=== PATIENT | female | born 1960 | race Hispanic/Latino ===

== ENCOUNTER 2020-07-16 00:52 | Emergency (ER) | payer OTHER, SELFPAY ==
[2020-07-16] MEDS ORDERED: Ketorolac Tromethamine 30 MG/ML VIAL ONE (03:39)
[2020-07-16] MEDS ORDERED: Metoclopramide HCl 10 MG/2 ML VIAL ONE (03:39)
[2020-07-16] MEDS ORDERED: diphenhydrAMINE 50 MG/ML VIAL ONE (03:39)
[2020-07-16 04:06] LABS: ALT (SGPT) 16 U/L (8-55); AST (SGOT) 19 U/L (5-34); Albumin 4.2 g/dL (3.5-5.0); Alkaline Phosphatase 87 U/L (40-110); Anion Gap 12 mmol/L (10-20); BUN (Urea Nitrogen) 10 mg/dL (9.8-20.1); Calc. Creatinine Clearance 0 mL/min (70-130); Carbon Dioxide 28 mmol/L (22-29); Globulin 3.3 g/dL (2.4-3.5); Glucose 174 mg/dL (70-105); Potassium 3.7 mmol/L (3.5-5.1); Protein, Total 7.5 g/dL (6.0-8.3); Sodium 134 mmol/L (136-145)
[2020-07-16 04:24] LABS: Calcium 8.9 mg/dL (7.8-10.44); Chloride 98 mmol/L (98-107)
[2020-07-16 04:39] LABS: #Basophils 0.1 thou/uL (0.0-0.2); #Eosinphils 0.2 thou/uL (0.0-0.7); #Lymphocytes 2.8 thou/uL (1.20-3.40); #Monocytes 0.5 thou/uL (0.11-0.59); #Neutrophils 4.4 thou/uL (1.40-6.50); %Basophils 1.1 % (0.0-1.0); %Eosinophils 2.8 % (0.0-10.0); %Lymphocytes 35.5 % (21.0-51.0); %Monocytes 5.6 % (0.0-10.0); Hemoglobin 12.1 g/dL (12.0-16.0); Large Platelets SLIGHT; MDiff Complete? YES; Mean Corpuscular HGB CONC 33.8 g/dL (32.0-36.0); Mean Corpuscular Hemoglobin 30.6 pg (27.0-31.0); Mean Corpuscular Volume 90.5 fL (78.0-98.0); Mean Platelet Volume 13.4 fL (7.4-10.4); Platelet Count 106 thou/uL (130-400); Platelet Morphology Comment Appears Decreased; RBC Distribution Width 12.4 % (11.5-14.5); Red Blood Cell (RBC) Count 3.95 mill/uL (4.20-5.40)
== END 2020-07-16 06:00 | disposition home or self-care (01) ==
LOC: ERS 00:52
DX: M47.812 Spondylosis without myelopathy or radiculopathy, cervical region (principal); R51.9 Headache, unspecified; R29.701 NIHSS score 1; I10 Essential (primary) hypertension; E11.9 Type 2 diabetes mellitus without complications; E78.5 Hyperlipidemia, unspecified
CPT/HCPCS: 36415; 70450; 72125; 80053; 84484; 85025; 93005; 94760; 96365; 96375; J1200; J1885; J2765

== ENCOUNTER 2021-02-18 01:34 | Emergency (ER) | payer SELFPAY ==
[2021-02-18] MEDS ORDERED: cloNIDine 0.1 MG TAB ONE (02:11)
[2021-02-18 04:19] LABS: #Basophils 0.1 thou/uL (0.0-0.2); #Eosinphils 0.2 thou/uL (0.0-0.7); #Lymphocytes 3.2 thou/uL (1.20-3.40); #Monocytes 0.6 thou/uL (0.11-0.59); #Neutrophils 6.3 thou/uL (1.40-6.50); %Basophils 0.9 % (0.0-1.0); %Eosinophils 1.9 % (0.0-10.0); %Lymphocytes 30.7 % (21.0-51.0); %Monocytes 5.4 % (0.0-10.0); %Neutrophils 61.1 % (42.0-75.0); Hemoglobin 11.8 g/dL (12.0-16.0); Mean Corpuscular HGB CONC 33.7 g/dL (32.0-36.0); Mean Platelet Volume 13.2 fL (7.4-10.4); Platelet Count 96 thou/uL (130-400); RBC Distribution Width 12.6 % (11.5-14.5); Red Blood Cell (RBC) Count 3.82 mill/uL (4.20-5.40); White Blood Cell (WBC) Count 10.3 thou/uL (4.8-10.8)
[2021-02-18 04:29] LABS: ALT (SGPT) 53 U/L (8-55); AST (SGOT) 49 U/L (5-34); Albumin 4.1 g/dL (3.4-4.8); Alkaline Phosphatase 71 U/L (40-110); Anion Gap 14 mmol/L (10-20); BUN (Urea Nitrogen) 9 mg/dL (9.8-20.1); Bilirubin, Total 1.3 mg/dL (0.2-1.2); Calc. Creatinine Clearance 0 mL/min (70-130); Calcium 9.3 mg/dL (7.8-10.44); Carbon Dioxide 27 mmol/L (23-31); Chloride 89 mmol/L (98-107); Glucose 148 mg/dL (80-115); Potassium 4.1 mmol/L (3.5-5.1); Protein, Total 7.1 g/dL (5.8-8.1); Sodium 126 mmol/L (136-145)
== END 2021-02-18 05:05 | disposition home or self-care (01) ==
LOC: ERS 01:34
DX: I10 Essential (primary) hypertension (principal); E11.9 Type 2 diabetes mellitus without complications; E78.5 Hyperlipidemia, unspecified; Z79.899 Other long term (current) drug therapy
CPT/HCPCS: 71045; 80053; 84484; 85025; 93005

== ENCOUNTER 2021-12-02 20:42 | Inpatient (IN) | payer SELFPAY ==
[2021-12-02 21:50] LABS: ALT (SGPT) 35 U/L (8-55); AST (SGOT) 31 U/L (5-34); Albumin 4.6 g/dL (3.4-4.8); Alkaline Phosphatase 99 U/L (40-110); Anion Gap 16 mmol/L (10-20); BUN (Urea Nitrogen) 9 mg/dL (9.8-20.1); Calc. Creatinine Clearance 0 mL/min (70-130); Calcium 9.6 mg/dL (7.8-10.44); Carbon Dioxide 30 mmol/L (23-31); Chloride 95 mmol/L (98-107); Estimated GFR 98; Globulin 3.3 g/dL (2.4-3.5); Glucose 196 mg/dL (80-115); Lipase 34 U/L (8-78); Potassium 4.3 mmol/L (3.5-5.1); Protein, Total 7.9 g/dL (5.8-8.1); Sodium 137 mmol/L (136-145)
[2021-12-02 22:01] LABS: #Basophils 0.1 thou/uL (0.0-0.2); #Eosinphils 0.3 thou/uL (0.0-0.7); #Lymphocytes 2.8 thou/uL (1.20-3.40); #Monocytes 0.6 thou/uL (0.11-0.59); %Basophils 0.7 % (0.0-1.0); %Eosinophils 2.8 % (0.0-10.0); %Lymphocytes 28.6 % (21.0-51.0); %Monocytes 6.3 % (0.0-10.0); %Neutrophils 61.6 % (42.0-75.0); Hemoglobin 13.1 g/dL (12.0-16.0); Large Platelets SLIGHT; MDiff Complete? YES; Mean Corpuscular HGB CONC 34.7 g/dL (32.0-36.0); Mean Corpuscular Hemoglobin 31.5 pg (27.0-31.0); Mean Corpuscular Volume 90.9 fL (78.0-98.0); Mean Platelet Volume 12.4 fL (7.4-10.4); Platelet Count 124 thou/uL (130-400); Platelet Morphology Comment Appears Adequate; RBC Distribution Width 12.6 % (11.5-14.5); Red Blood Cell (RBC) Count 4.17 mill/uL (4.20-5.40); White Blood Cell (WBC) Count 9.8 thou/uL (4.8-10.8)
[2021-12-02] MEDS ORDERED: Nitroglycerin 0.4 MG TAB 1 EACH ONE (22:03)
[2021-12-02 22:44] LABS: Bilirubin, Total 1.1 mg/dL (0.2-1.2)
[2021-12-02] MEDS ORDERED: Labetalol HCl 100 MG/20 ML VIAL ONE (23:15)
[2021-12-02] MEDS ORDERED: Aspirin Chewable 81 MG TAB ONE (23:32)
[2021-12-03] MEDS ORDERED: Ondansetron ODT 4 MG TAB SL PRN (00:15)
[2021-12-03] MEDS ORDERED: Ondansetron PF 4 MG/2 ML Vial IVP PRN (00:15)
[2021-12-03] MEDS ORDERED: Acetaminophen 325 MG TAB PO PRN (00:15)
[2021-12-03] MEDS ORDERED: Nitroglycerin 2% Ointment 1 INCH/1 GM Packet ONE (00:37)
[2021-12-03] MEDS ORDERED: HumaLOG 300 UNITS/3 ML VIAL SC PRN ×2 (00:48)
[2021-12-03] MEDS ORDERED: Acetaminophen 650 MG Suppository PR PRN (00:48)
[2021-12-03] MEDS ORDERED: Nitroglycerin 0.4 MG TAB (25 Tab Bottle) SL PRN (00:48)
[2021-12-03] MEDS ORDERED: Dextrose 5% in Water 1,000 ML IV PRN (00:48)
[2021-12-03] MEDS ORDERED: Dextrose 50% Abboject 50 ML SYRINGE SLOW IVP PRN (00:48)
[2021-12-03] MEDS ORDERED: Clopidogrel Bisulfate 75 MG TAB ONE (01:00)
[2021-12-03 01:22] LABS: Troponin I Less than 0.010 ng/mL (< 0.028)
[2021-12-03 01:48] LABS: SARS-CoV-2 NAA Rapid Test Not Detected (NotDetected)
[2021-12-03] MEDS ORDERED: Acetaminophen 325 MG TAB ONE (04:12)
[2021-12-03] MEDS ORDERED: hydrALAZINE 20 MG/ML VIAL SLOW IVP PRN (04:17)
[2021-12-03 05:17] LABS: Anion Gap 18 mmol/L (10-20); BUN (Urea Nitrogen) 6 mg/dL (9.8-20.1); Calc. Creatinine Clearance 0 mL/min (70-130); Calcium 9.7 mg/dL (7.8-10.44); Carbon Dioxide 27 mmol/L (23-31); Chloride 97 mmol/L (98-107); Estimated GFR 101; Glucose 164 mg/dL (80-115); Potassium 3.9 mmol/L (3.5-5.1); Sodium 138 mmol/L (136-145)
[2021-12-03 05:23] LABS: Troponin I Less than 0.010 ng/mL (< 0.028)
[2021-12-03 05:48] LABS: #Basophils 0.1 thou/uL (0.0-0.2); #Eosinphils 0.2 thou/uL (0.0-0.7); #Lymphocytes 2.5 thou/uL (1.20-3.40); #Monocytes 0.5 thou/uL (0.11-0.59); #Neutrophils 5.3 thou/uL (1.40-6.50); %Basophils 0.9 % (0.0-1.0); %Eosinophils 2.4 % (0.0-10.0); %Lymphocytes 28.8 % (21.0-51.0); %Monocytes 5.9 % (0.0-10.0); Hemoglobin 12.4 g/dL (12.0-16.0); Mean Corpuscular HGB CONC 33.4 g/dL (32.0-36.0); Mean Corpuscular Hemoglobin 30.8 pg (27.0-31.0); Mean Corpuscular Volume 92.1 fL (78.0-98.0); Mean Platelet Volume 12.6 fL (7.4-10.4); Platelet Count 112 thou/uL (130-400); RBC Distribution Width 12.8 % (11.5-14.5); Red Blood Cell (RBC) Count 4.04 mill/uL (4.20-5.40); White Blood Cell (WBC) Count 8.5 thou/uL (4.8-10.8)
[2021-12-03] MEDS ORDERED: Amlodipine 10 MG TAB PO SCH (06:30)
[2021-12-03] MEDS ORDERED: Furosemide 40 MG/4 ML VIAL SLOW IVP SCH (06:30)
[2021-12-03] MEDS ORDERED: Furosemide 40 MG/4 ML VIAL ONE (06:35)
[2021-12-03] MEDS ORDERED: Amlodipine 5 MG TAB ONE (06:35)
[2021-12-03 07:17] LABS: Hemoglobin A1c 7.1 % (4.0-6.0)
[2021-12-03] MEDS: Aspirin Chewable 81 MG TAB PO SCH (08:43)
[2021-12-03] MEDS: Enoxaparin Sodium 40 MG/0.4 ML SYRINGE SC SCH (08:44)
[2021-12-03 09:26] VITALS: BMI 42.0
[2021-12-03] MEDS ORDERED: Spironolactone 25 MG TAB PO SCH (10:45)
[2021-12-03] MEDS ORDERED: Empagliflozin 25 MG TAB PO SCH (10:45)
[2021-12-03] MEDS: Hydrochlorothiazide 25 MG TAB PO SCH (10:57)
[2021-12-03] MEDS: Carvedilol 25 MG TAB PO SCH ×2 (10:57→20:28)
[2021-12-03] MEDS: metFORMIN 500 MG TAB PO SCH (16:16)
[2021-12-03] MEDS ORDERED: Alogliptin 6.25 MG TAB PO SCH (17:00)
[2021-12-03] MEDS ORDERED: Atorvastatin Calcium 40 MG TAB PO SCH (21:00)
[2021-12-04] MEDS ORDERED: Acetaminophen 325 MG TAB PO PRN (00:04)
[2021-12-04 05:22] LABS: Anion Gap 17 mmol/L (10-20); BUN (Urea Nitrogen) 10 mg/dL (9.8-20.1); Calc. Creatinine Clearance 152 mL/min (70-130); Calcium 9.9 mg/dL (7.8-10.44); Carbon Dioxide 26 mmol/L (23-31); Chloride 96 mmol/L (98-107); Estimated GFR 100; Glucose 154 mg/dL (80-115); Potassium 3.4 mmol/L (3.5-5.1); Sodium 136 mmol/L (136-145)
[2021-12-04] MEDS ORDERED: Spironolactone 25 MG TAB PO SCH (08:00)
[2021-12-04] MEDS: Aspirin Chewable 81 MG TAB PO SCH (08:07)
[2021-12-04] MEDS: Enoxaparin Sodium 40 MG/0.4 ML SYRINGE SC SCH (08:09)
[2021-12-04] MEDS ORDERED: Empagliflozin 25 MG TAB PO SCH (09:00)
[2021-12-04] MEDS ORDERED: Amlodipine 10 MG TAB PO SCH (09:00)
[2021-12-04] MEDS ORDERED: Hydrochlorothiazide 25 MG TAB PO SCH (09:00)
[2021-12-04] MEDS ORDERED: Losartan 25 MG TAB PO SCH (09:00)
[2021-12-04] MEDS: Hydrochlorothiazide 25 MG TAB PO SCH (11:18)
[2021-12-04] MEDS: Carvedilol 25 MG TAB PO SCH (13:03)
[2021-12-04] MEDS: metFORMIN 500 MG TAB PO SCH ×2 (13:05→17:21)
[2021-12-04] MEDS ORDERED: Potassium Chloride 20 MEQ TAB PO SCH (13:30)
[2021-12-04 15:59] VITALS: BP 156/70; TEMP 98
== END 2021-12-04 17:54 | disposition home or self-care (01) | DRG 305 ==
LOC: ERS 20:42 → ERHOLD 23:47 → 2SW 12-03 07:42 → OBSVTOIN 12-04 09:51
PROVIDERS: ADMIT Student in an Organized Health Care Education/Training Program; ATTEND Family Medicine
DX: I16.1 Hypertensive emergency (principal); Z68.41 Body mass index [BMI] 40.0-44.9, adult; I50.32 Chronic diastolic (congestive) heart failure; Z20.822 Contact with and (suspected) exposure to COVID-19; E78.5 Hyperlipidemia, unspecified; D69.6 Thrombocytopenia, unspecified; I16.0 Hypertensive urgency; E11.51 Type 2 diabetes mellitus with diabetic peripheral angiopathy without gangrene; I70.209 Unspecified atherosclerosis of native arteries of extremities, unspecified extremity; I11.0 Hypertensive heart disease with heart failure; E66.01 Morbid (severe) obesity due to excess calories; F41.9 Anxiety disorder, unspecified; F32.A Depression, unspecified; Z60.2 Problems related to living alone; Z79.899 Other long term (current) drug therapy
CPT/HCPCS: 36415; 36416; 70450; 71045; 78452; 80048; 80053; 83036; 83690; 83880; 84484; 85025; 93005; 93017; 94760; 96375; A9500; G0378; J0153; J0360; J1940; U0002

== ENCOUNTER 2022-08-16 04:23 | Observation (INO) | payer SELFPAY ==
[2022-08-16 04:50] LABS: #Basophils 0.1 thou/uL (0.0-0.2); #Eosinphils 0.2 thou/uL (0.0-0.7); #Monocytes 0.5 thou/uL (0.11-0.59); #Neutrophils 5.8 thou/uL (1.40-6.50); %Basophils 0.8 % (0.0-1.0); %Eosinophils 2.2 % (0.0-10.0); %Lymphocytes 27.9 % (21.0-51.0); %Monocytes 5.5 % (0.0-10.0); %Neutrophils 63.4 % (42.0-75.0); Hemoglobin 11.2 g/dL (12.0-16.0); Mean Corpuscular HGB CONC 32.2 g/dL (32.0-36.0); Mean Corpuscular Hemoglobin 29.7 pg (27.0-31.0); Mean Corpuscular Volume 92.3 fl (78.0-98.0); Mean Platelet Volume 13.4 fL (7.4-10.4); Platelet Count 124 10x3/uL (130-400); RBC Distribution Width 13.6 % (11.5-14.5); Red Blood Cell (RBC) Count 3.77 mill/uL (4.20-5.40); White Blood Cell (WBC) Count 9.1 10x3/uL (4.8-10.8)
[2022-08-16 05:06] LABS: INR-International Normal Ratio 0.9; PTT 29.4 sec (22.9-36.1); Prothrombin Time 12.7 sec (12.0-14.7)
[2022-08-16 05:19] LABS: ALT (SGPT) 21 U/L (8-55); AST (SGOT) 17 U/L (5-34); Albumin 4.4 g/dL (3.4-4.8); Alkaline Phosphatase 76 U/L (40-110); Anion Gap 13 mmol/L (10-20); BUN (Urea Nitrogen) 23 mg/dL (9.8-20.1); Bilirubin, Total 0.8 mg/dL (0.2-1.2); CK (CPK) 65 U/L (29-168); Calc. Creatinine Clearance 0 mL/min (70-130); Calcium 9.3 mg/dL (7.8-10.44); Carbon Dioxide 25 mmol/L (23-31); Chloride 99 mmol/L (98-107); Estimated GFR 69; Globulin 3.2 g/dL (2.4-3.5); Glucose 154 mg/dL (80-115); Potassium 4.6 mmol/L (3.5-5.1); Protein, Total 7.6 g/dL (5.8-8.1); Sodium 132 mmol/L (136-145)
[2022-08-16 05:20] LABS: Acetaminophen Less than 10.0 mcg/mL (10.0-30.0); Alcohol Less than 10 mg/dL (Less than 10); Lipase 46 U/L (8-78); Salicylate Less than 8.0 mg/dL (15.0-30.0)
[2022-08-16 06:35] LABS: Bilirubin Negative (Negative); Blood, Urine Negative (Negative); Clarity Clear (Clear); Glucose, Urine (Dipstick) 500 mg/dL (Negative); Ketone, Urine Negative (Negative); Leukocyte Negative Leu/uL (Negative); Nitrite Negative (Negative); Protein, Urine (Dipstick) Negative (Neg-Trace); Specific Gravity, Urine 1.004 (1.002-1.036); Urobilinogen Normal mg/dL (Less than 2); pH, Urine 5.5 (5.0-9.0)
[2022-08-16 06:44] LABS: Amphetamine Not Detected (NotDetected); Barbiturates Screen Not Detected (NotDetected); Benzodiazepine Screen Not Detected (NotDetected); Cocaine Metabolite Screen Not Detected (NotDetected); Methadone Not Detected (NotDetected); Methamphetamine Not Detected (NotDetected); Opiate Screen Not Detected (NotDetected); Oxycodone Screen Not Detected (NotDetected); Phencyclidine (PCP) Not Detected (NotDetected); THC/Cannabinoid Screen Not Detected (NotDetected); Tricyclic Screen Not Detected (NotDetected)
[2022-08-16] MEDS ORDERED: Aspirin Chewable 81 MG TAB ONE (07:25)
[2022-08-16] MEDS ORDERED: Acetaminophen 325 MG TAB PO PRN (07:31)
[2022-08-16] MEDS ORDERED: Ondansetron PF 4 MG/2 ML Vial IVP PRN (07:31)
[2022-08-16] MEDS ORDERED: Ondansetron ODT 4 MG TAB PO PRN (07:31)
[2022-08-16 08:58] LABS: Magnesium 2.2 mg/dL (1.6-2.6)
[2022-08-16 09:17] LABS: Hemoglobin A1c 6.8 % (4.0-6.0)
[2022-08-16 15:41] VITALS: BMI 40.9
[2022-08-16] MEDS ORDERED: Atorvastatin Calcium 40 MG TAB PO SCH (21:00)
[2022-08-17 04:06] VITALS: TEMP 97.5
[2022-08-17 05:49] LABS: #Basophils 0.1 thou/uL (0.0-0.2); #Eosinphils 0.2 thou/uL (0.0-0.7); #Monocytes 0.4 thou/uL (0.11-0.59); #Neutrophils 4.8 thou/uL (1.40-6.50); %Basophils 0.8 % (0.0-1.0); %Eosinophils 2.4 % (0.0-10.0); %Lymphocytes 30.4 % (21.0-51.0); %Monocytes 5.5 % (0.0-10.0); %Neutrophils 60.6 % (42.0-75.0); Hemoglobin 12.6 g/dL (12.0-16.0); Mean Corpuscular HGB CONC 31.7 g/dL (32.0-36.0); Mean Corpuscular Hemoglobin 29.2 pg (27.0-31.0); Mean Corpuscular Volume 91.9 fl (78.0-98.0); Mean Platelet Volume 13.7 fL (7.4-10.4); Platelet Count 133 10x3/uL (130-400); RBC Distribution Width 13.3 % (11.5-14.5); Red Blood Cell (RBC) Count 4.32 mill/uL (4.20-5.40); White Blood Cell (WBC) Count 7.9 10x3/uL (4.8-10.8)
[2022-08-17 06:43] LABS: Anion Gap 15 mmol/L (10-20); BUN (Urea Nitrogen) 21 mg/dL (9.8-20.1); Calc. Creatinine Clearance 113 mL/min (70-130); Calcium 9.8 mg/dL (7.8-10.44); Carbon Dioxide 26 mmol/L (23-31); Cardiac Risk 5.8 (Less than 4.5); Chloride 101 mmol/L (98-107); Cholesterol 167 mg/dl (< 200 Desired); Estimated GFR 83; Glucose 136 mg/dL (80-115); HDL Cholesterol 29 mg/dL (>60 Neg Risk); LDL Cholesterol, Calculated 69 mg/dL; Potassium 4.1 mmol/L (3.5-5.1); Sodium 138 mmol/L (136-145); Triglycerides 347 mg/dL (Less than 150)
[2022-08-17] MEDS ORDERED: Spironolactone 25 MG TAB PO SCH (08:00)
[2022-08-17] MEDS ORDERED: Alogliptin 6.25 MG TAB PO SCH (08:00)
[2022-08-17] MEDS ORDERED: metFORMIN 500 MG TAB PO SCH (08:00)
[2022-08-17] MEDS ORDERED: Empagliflozin 25 MG TAB PO SCH (08:00)
[2022-08-17] MEDS ORDERED: Hydrochlorothiazide 25 MG TAB PO SCH ×2 (09:00)
[2022-08-17] MEDS ORDERED: cloNIDine 0.3 MG TAB PO SCH (09:00)
[2022-08-17] MEDS ORDERED: Aspirin Chewable 81 MG TAB PO SCH (09:00)
[2022-08-17] MEDS ORDERED: Losartan 25 MG TAB PO SCH (09:00)
[2022-08-17] MEDS ORDERED: Amlodipine 10 MG TAB PO SCH (09:00)
[2022-08-17] MEDS ORDERED: Carvedilol 25 MG TAB PO SCH (09:00)
[2022-08-17] MEDS ORDERED: Aspirin 81 mg Enteric Coated Tablet PO SCH (09:00)
[2022-08-17] MEDS ORDERED: Clopidogrel Bisulfate 75 MG TAB PO SCH (11:15)
[2022-08-17 12:16] VITALS: BP 149/77
[2022-08-17] MEDS ORDERED: Sertraline 100 MG TAB PO SCH (21:00)
[2022-08-17] MEDS ORDERED: Atorvastatin Calcium 40 MG TAB PO SCH (21:00)
== END 2022-08-17 14:45 | disposition home or self-care (01) ==
LOC: ERS 04:23 → NEURO 07:13 → INTOOBSV 07:13
PROVIDERS: ADMIT Internal Medicine; ATTEND Internal Medicine
DX: R20.2 Paresthesia of skin (principal); H53.8 Other visual disturbances; E11.9 Type 2 diabetes mellitus without complications; I11.9 Hypertensive heart disease without heart failure; E78.5 Hyperlipidemia, unspecified; E66.9 Obesity, unspecified; Z68.41 Body mass index [BMI] 40.0-44.9, adult; Z79.82 Long term (current) use of aspirin; Z79.84 Long term (current) use of oral hypoglycemic drugs; Z79.899 Other long term (current) drug therapy
CPT/HCPCS: 36415; 36416; 70450; 70551; 71045; 80048; 80053; 80061; 80306; 80307; 81003; 82550; 83036; 83605; 83690; 83735; 84443; 84484; 85025; 85610; 85730; 93005; 93306; 93880; G0378